=== PATIENT | male | born 1990 | race Asian ===

== ENCOUNTER 2018-08-08 00:16 | Emergency (ER) | payer SELFPAY ==
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
[2018-08-08 00:42] VITALS: BP 135/76; PULSE 80; TEMP 97.9; BMI 15.6
== END 2018-08-08 00:44 | disposition home or self-care (01) ==
LOC: JER 00:16
DX: S90.512A Abrasion, left ankle, initial encounter (principal); W22.09XA Striking against other stationary object, initial encounter; Y93.89 Activity, other specified; Y92.89 Other specified places as the place of occurrence of the external cause
CPT/HCPCS: 99281-25